=== PATIENT | female | born 1970 | race African-American/Black ===

== ENCOUNTER 2019-03-02 07:05 | Emergency (ER) | payer MEDICARE, MEDICAID ==
[~2019-03-02] VITALS: Ht 172.7 cm; Wt 100.0 kg
[~2019-03-02 07:05] MED LIST: ATENOLOL; LISINOPRIL; PREDNISONE; XANAX
[2019-03-02] MEDS ORDERED: IPRATROPIUM BROMIDE (0.02%) 0.5MG/2.5ML NEB HHN STA (07:20)
[2019-03-02] MEDS ORDERED: MAGNESIUM 2 G PREMIX 50 ML IV STA (07:20)
[2019-03-02] MEDS ORDERED: ALBUTEROL (0.083%) 2.5MG/3ML NEB HHN STA (07:20)
[2019-03-02] MEDS ORDERED: METHYLPREDNISOLONE SOD SUCC 125 MG/2 ML VIAL IV STA (09:26)
[2019-03-02 09:49] LABS: HEMATOCRIT. 43.9 % (36.0-48.0); HEMOGLOBIN. 14.4 g/dL (12.0-16.0); MEAN CORPUSCULAR HEMOGLOBIN 29.9 pg (28.0-32.0); MEAN CORPUSCULAR VOLUME 90.9 fL (81.0-99.0); MEAN PLATELET VOLUME 9.3 fl (7.4-10.4); PLATELET 215 x1000/uL (130-400); RED BLOOD CELL COUNT 4.83 mill/uL (4.2-5.4); RED CELL DISTRIBUTION WIDTH 13.2 % (11.6-14.6)
[2019-03-02 10:00] LABS: CHLORIDE 106 mEq/L (98-107)
[2019-03-02 10:20] LABS: PLATELET ESTIMATE NORMAL
[2019-03-02 10:29] VITALS: BP 154/88
== END 2019-03-02 10:36 | disposition left against medical advice (07) ==
LOC: ER 07:05
DX: J45.901 Unspecified asthma with (acute) exacerbation (principal); R00.0 Tachycardia, unspecified; I10 Essential (primary) hypertension; Z87.891 Personal history of nicotine dependence; Z79.51 Long term (current) use of inhaled steroids; Z79.899 Other long term (current) drug therapy
CPT/HCPCS: 36415; 71045; 80053; 84484; 85025; 93005; 94644; 96374; 99285; J2930; J3475; J7611

== ENCOUNTER 2021-05-15 18:03 | Emergency (ER) | payer MEDICAID, MEDICARE, OTHER ==
[~2021-05-15] VITALS: Ht 172.7 cm; Wt 109.0 kg
[2021-05-15 18:12] VITALS: BP 155/89
[2021-05-16] MEDS ORDERED: CELE100C MT (12:18)
== END 2021-05-16 00:38 | disposition left against medical advice (07) ==
LOC: ER 18:03
DX: M79.18 Myalgia, other site (principal); Z53.21 Procedure and treatment not carried out due to patient leaving prior to being seen by health care provider
CPT/HCPCS: 71045; 93970; 99284

== ENCOUNTER 2021-05-16 09:45 | Emergency (ER) | payer MEDICAID, MEDICARE, OTHER ==
[~2021-05-16] VITALS: Ht 172.7 cm; Wt 105.0 kg
[2021-05-16 10:20] VITALS: BP 125/83
[2021-05-16] MEDS ORDERED: ACETAMINOPHEN 325MG TABLET PO ONE (10:30)
[2021-05-16] MEDS ORDERED: GABAPENTIN 300MG CAPSULE PO ONE (10:30)
[2021-05-16 11:03] LABS: CLARITY URINE CLEAR (CLEAR); COLOR URINE YELLOW (YELLOW); KETONES URINE NEGATIVE (NEGATIVE); LEUKOCYTE ESTERASE URINE NEGATIVE (NEGATIVE); NITRITE URINE NEGATIVE (NEGATIVE); OCCULT BLOOD URINE TRACE (NEGATIVE); PROTEIN URINE NEGATIVE (NEGATIVE); SPECIFIC GRAVITY URINE 1.018 (1.005-1.030); UROBILINOGEN URINE 0.2 E.U./dL (0.2-1.0)
[2021-05-16 11:12] LABS: EOSINOPHILS % 4.4 % (0.0-5.0); HEMATOCRIT. 38.8 % (36.0-48.0); HEMOGLOBIN. 12.5 g/dL (12.0-16.0); LYMPHOCYTES % 24.2 % (20.0-50.0); MEAN CORPUSCULAR HEMOGLOBIN 27.6 pg (28.0-32.0); MEAN CORPUSCULAR VOLUME 86.1 fL (81.0-99.0); MEAN PLATELET VOLUME 8.6 fl (7.4-10.4); MONOCYTES % 9.7 % (2.0-8.0); NEUTROPHILS % 58.7 % (40.0-76.0); PLATELET 286 x1000/uL (130-400); RED BLOOD CELL COUNT 4.51 mill/uL (4.2-5.4); RED CELL DISTRIBUTION WIDTH 13.9 % (11.6-14.6)
[2021-05-16 11:24] LABS: CHLORIDE 110 mEq/L (98-107)
[2021-05-16 11:33] LABS: CREATINE KINASE 436 IU/L (26-192)
[2021-05-16 11:40] LABS: PROTHROMBIN TIME 10.5 sec (9.6-11.0)
[2021-05-16] MEDS ORDERED: CELE100C MT (12:18)
== END 2021-05-16 12:49 | disposition home or self-care (01) ==
LOC: ER 09:45
DX: R60.0 Localized edema (principal); E78.00 Pure hypercholesterolemia, unspecified; I10 Essential (primary) hypertension; J45.909 Unspecified asthma, uncomplicated
CPT/HCPCS: 36415; 80053; 81003; 82550; 83880; 85025; 99283

== ENCOUNTER 2021-05-28 07:36 | Emergency (ER) | payer OTHER ==
[~2021-05-28] VITALS: Ht 172.7 cm; Wt 109.0 kg
[~2021-05-28 07:36] MED LIST changes: +CELE100C MT
[2021-05-28 09:08] LABS: BASOPHILS % 0.6 % (0.0-2.0); EOSINOPHILS % 10.3 % (0.0-5.0); HEMATOCRIT. 37.5 % (36.0-48.0); HEMOGLOBIN. 12.1 g/dL (12.0-16.0); LYMPHOCYTES % 27.4 % (20.0-50.0); MEAN CORPUSCULAR HEMOGLOBIN 27.8 pg (28.0-32.0); MEAN CORPUSCULAR VOLUME 86.1 fL (81.0-99.0); MONOCYTES % 8.6 % (2.0-8.0); NEUTROPHILS % 53.1 % (40.0-76.0); PLATELET 232 x1000/uL (130-400); RED BLOOD CELL COUNT 4.36 mill/uL (4.2-5.4)
[2021-05-28 09:16] LABS: CHLORIDE 110 mEq/L (98-107)
[2021-05-28] MEDS ORDERED: IBUP-2028 MT (11:00)
[2021-05-28 11:09] VITALS: BP 148/65
== END 2021-05-28 11:10 | disposition home or self-care (01) ==
LOC: ER 07:52
DX: M25.562 Pain in left knee (principal); M25.561 Pain in right knee; J45.909 Unspecified asthma, uncomplicated; E78.00 Pure hypercholesterolemia, unspecified; I10 Essential (primary) hypertension; Z90.710 Acquired absence of both cervix and uterus; Z20.822 Contact with and (suspected) exposure to COVID-19
CPT/HCPCS: 36415; 71045; 73564; 80053; 83880; 84484; 84702; 85025; 87426; 87804; 93005; 99285

== ENCOUNTER 2021-06-21 16:27 | Emergency (ER) | payer MEDICARE, MEDICAID ==
[~2021-06-21] VITALS: Ht 167.6 cm; Wt 107.0 kg
[~2021-06-21 16:27] MED LIST changes: +IBUP-2028 MT
[2021-06-21 16:44] VITALS: BP 146/79
== END 2021-06-21 18:58 | disposition left against medical advice (07) ==
LOC: ER 16:27
DX: Z53.21 Procedure and treatment not carried out due to patient leaving prior to being seen by health care provider (principal)
CPT/HCPCS: 93005

== ENCOUNTER 2021-07-19 09:37 | Emergency (ER) | payer MEDICARE, MEDICAID ==
[~2021-07-19] VITALS: Ht 175.3 cm; Wt 105.0 kg
[2021-07-19 09:40] VITALS: BP 135/74
[2021-07-19] MEDS ORDERED: IPRATROPIUM BROMIDE (0.02%) 0.5MG/2.5ML NEB HHN ONE (10:00)
[2021-07-19] MEDS ORDERED: ALBUTEROL (0.083%) 2.5MG/3ML NEB HHN ONE ×3 (10:00)
[2021-07-19] MEDS ORDERED: SODIUM CHLORIDE 0.9% 500 ML IV ONE (11:15)
[2021-07-19] MEDS ORDERED: ALBU6.7H9 INH (11:18)
[2021-07-19] MEDS ORDERED: PRED10TA MT (11:24)
== END 2021-07-19 11:35 | disposition home or self-care (01) ==
LOC: ER 09:37
DX: J45.901 Unspecified asthma with (acute) exacerbation (principal); I10 Essential (primary) hypertension; E78.00 Pure hypercholesterolemia, unspecified; Z90.710 Acquired absence of both cervix and uterus
CPT/HCPCS: 71045; 93005; 94640; 99283

== ENCOUNTER 2023-07-10 22:06 | Emergency (ER) | payer MEDICARE, MEDICAID ==
[~2023-07-10] VITALS: Ht 182.9 cm; Wt 100.0 kg
[~2023-07-10 22:06] MED LIST changes: +ALBU6.7H3 INH; +PRED10TA MT
[2023-07-10 22:32] VITALS: O2SAT 95
[2023-07-10 22:55] LABS: BASOPHILS % 1.3 % (0.0-2.0); EOSINOPHILS % 3.5 % (0.0-5.0); HEMOGLOBIN. 13.5 g/dL (12.0-16.0); LYMPHOCYTES % 22.2 % (20.0-50.0); MEAN CORPUSCULAR HGB CONC 32.9 g/dL (31.0-37.0); MEAN CORPUSCULAR VOLUME 88.1 fL (81.0-99.0); MEAN PLATELET VOLUME 9.4 fl (7.4-10.4); MONOCYTES % 7.2 % (2.0-8.0); NEUTROPHILS % 65.8 % (40.0-76.0); PLATELET 266 x1000/uL (130-400); RED BLOOD CELL COUNT 4.65 mill/uL (4.2-5.4); RED CELL DISTRIBUTION WIDTH 12.6 % (11.6-14.6); WHITE BLOOD COUNT 10.7 x1000/uL (4.5-11.0)
[2023-07-10 23:10] LABS: ALANINE AMINOTRANSFERASE 13 IU/L (10-49); ALBUMIN 4.9 g/dL (3.2-4.8); ASPARTATE AMINOTRANSFERASE 18 IU/L (<34); BILIRUBIN TOTAL 1.7 mg/dL (0.1-1.0); CALCIUM 9.3 mg/dL (8.7-10.4); CARBON DIOXIDE 25 mEq/L (21-32); CHLORIDE 109 mEq/L (98-107); CREATININE 0.7 mg/dL (0.6-1.0); GLUCOSE 124 mg/dL (70-105); POTASSIUM 3.2 mEq/L (3.5-5.1); PROTEIN TOTAL 7.2 g/dL (6.0-8.3); SODIUM 141 mEq/L (136-145); UREA NITROGEN BLOOD 12 mg/dL (9-23)
[2023-07-10 23:15] LABS: TROPONIN I HIGH SENSITIVITY < 4 ng/L (3.0-34)
[2023-07-10] MEDS: ONDANSETRON 4MG ODT PO STA (23:59)
[2023-07-11 00:19] VITALS: BP 131/76; PULSE 80; RESP 14; TEMP 99.2
[2023-07-11] MEDS: POTASSIUM CHLORIDE 20MEQ TABLET SR PO SCH (00:30)
[2023-07-11] MEDS: MAGNESIUM/ALUMINUM HYDROXIDE/SIMETHICONE 30ML UDC PO STA (01:18)
[2023-07-11] MEDS: DICYCLOMINE 10 MG/5 ML ORAL SYR PO STA (01:18)
[2023-07-11] MEDS: KETOROLAC 30MG/ML VIAL IM STA (01:21)
== END 2023-07-11 01:31 | disposition home or self-care (01) ==
LOC: ER 22:06
DX: R07.89 Other chest pain (principal); E87.6 Hypokalemia; E78.00 Pure hypercholesterolemia, unspecified; J45.909 Unspecified asthma, uncomplicated; I10 Essential (primary) hypertension; Z79.899 Other long term (current) drug therapy; Z90.710 Acquired absence of both cervix and uterus
CPT/HCPCS: 36415; 71045; 76700; 80053; 83880; 84484; 85025; 93005; 99284; 99285; J1885; Q0162